=== PATIENT | female | born 1970 | race Caucasian/White ===

== ENCOUNTER → 2018-09-09 | Outpatient (CLI) | payer MEDICAID ==
[~2018-09-09] MED LIST: ADVAIR 500/28 DISKU1 IH; CARDIZEM CD120 MG PO; CLONAZEPAM PO; CLONAZEPAM1 M1 PO; CLOPIDOGREL PO; DARVOCET A500 51 TAB PO; DEPAKOTE500 M1 PO; DILANTIN; DILANTIN 100MG100 MG PO; DILANTIN PO; DILANTIN100 MG PO; FOSAMAX PO; GABAPENTIN600 MG PO; KLONOPIN 1MG1 MG PO; KLONOPIN1 MG PO; KLONOPIN2 MG PO; LAMICTAL; LAMICTAL PO; LEVOCETIRIZINE; LISINOPRIL20 MG PO; LORTAB 5/500 501 TAB PO; LYRICA150 MG PO; LYRICA75 MG PO; MECLIZINE25 MG PO; METHOCARBAMOL500 MG PO; METOPROLOL50 MG PO; MIRALAX17 GM/DOSE PO; NAPROSYN375 MG PO; NEURONTIN600 MG/TAB PO; NORCO 325 MG-7.1 TAB PO; NORTRIPTYLINE25 MG PO; PAMELOR 25MG25 MG PO; PAMELOR PO; PERCOCET 5/321 UDTAB PO; PRILOSEC 20MG20 MG PO; PRILOSEC10 MG PO; PROVENTIL0.09 MG/A1 IH; ROXICODONE 55 MG/TAB PO; ROZEREM 8MG TABL8 MG PO; ROZEREM8 MG PO; RT ADVAIR 528 DISKUS IH; SEROQUEL XR400 M1 PO; SEROQUEL XR400 MG PO; SEROQUEL100 MG PO; SEROQUEL400 MG PO; SINGULAIR PO; SINGULAIR10 MG PO; TOPAMAX 25MG25 MG PO; TOPROL XL 50MG50 MG PO; XANAX 1MG1 MG PO; XANAX0.25 MG PO; XYZAL PO; XYZAL5 MG PO; ZOCOR 40MG40 MG PO; calcium; oxygen
== END ==
LOC: COL.RAD 14:00
DX: M51.17 Intervertebral disc disorders with radiculopathy, lumbosacral region (principal); M43.8X4 Other specified deforming dorsopathies, thoracic region

== ENCOUNTER 2018-10-06 13:55 | Emergency (ER) | payer MEDICAID ==
[~2018-10-06] VITALS: Ht 165.1 cm; Wt 86.4 kg
[2018-10-06 13:57] VITALS: TEMP 97.5
[2018-10-06] MEDS ORDERED: FLEXERIL 1010 MG/TAB PO (14:13)
[2018-10-06] MEDS ORDERED: KLONOPIN 1MG1 MG PO (14:13)
[2018-10-06] MEDS ORDERED: ROZEREM 8MG TABL8 MG PO (14:13)
[2018-10-06] MEDS ORDERED: SEROQUEL50 MG PO (14:14)
[2018-10-06] MEDS ORDERED: SYNTHROID 0.0.025 MG PO (14:14)
[2018-10-06] MEDS ORDERED: TOPROL XL 50MG50 MG PO ×2 (14:14→14:15)
[2018-10-06] MEDS ORDERED: VISTARIL50 MG PO (14:14)
[2018-10-06] MEDS ORDERED: SEROQUEL400 MG PO (14:14)
[2018-10-06] MEDS ORDERED: NEURONTIN600 MG/TAB PO (14:15)
[2018-10-06] MEDS ORDERED: REMERON 15M15 MG/TA1 PO (14:15)
[2018-10-06] MEDS ORDERED: PERCOCET 325 MG1 TA2 PO (15:29)
[2018-10-06] MEDS ORDERED: CRUTCHES MC (15:33)
--- NOTE | 2018-10-06 16:22 | NUR ---
SW was called by ED nurse. Patient is ready to discharge but she does not have a ride home and she does not have any money to pay for a taxi. ED nurse also tried to contact patient's insurance for transportation but patient does not have those benefits. PAMELA provided a taxi voucher.
[2018-10-06 16:35] VITALS: BP 131/84; PULSE 59
== END 2018-10-06 16:37 | disposition home or self-care (01) ==
LOC: COL.ER 13:55
DX: S82.831A Other fracture of upper and lower end of right fibula, initial encounter for closed fracture (principal); I10 Essential (primary) hypertension; F31.9 Bipolar disorder, unspecified; F17.210 Nicotine dependence, cigarettes, uncomplicated; W19.XXXA Unspecified fall, initial encounter; Y92.009 Unspecified place in unspecified non-institutional (private) residence as the place of occurrence of the external cause
CPT/HCPCS: J3010; Q4045

== ENCOUNTER 2018-11-02 18:33 | Emergency (ER) | payer MEDICAID ==
[~2018-11-02] VITALS: Ht 165.1 cm; Wt 86.4 kg
[~2018-11-02 18:33] MED LIST changes: +CRUTCHES MC; +FLEXERIL 1010 MG/TAB PO; +PERCOCET 325 MG1 TA2 PO; +REMERON 15M15 MG/TA1 PO; +SEROQUEL50 MG PO; +SYNTHROID 0.0.025 MG PO; +VISTARIL50 MG PO
[2018-11-02 18:42] VITALS: BP 143/72; PULSE 71; TEMP 97
== END 2018-11-02 19:15 | disposition left against medical advice (07) ==
LOC: COL.ER 18:33
DX: S51.002A Unspecified open wound of left elbow, initial encounter (principal); X58.XXXA Exposure to other specified factors, initial encounter

== ENCOUNTER 2019-04-26 17:15 | Emergency (ER) | payer MEDICAID ==
[~2019-04-26] VITALS: Ht 165.1 cm; Wt 81.8 kg
[2019-04-26 17:49] VITALS: BP 130/67; PULSE 73; TEMP 98.1
== END 2019-04-26 18:44 | disposition left against medical advice (07) ==
LOC: COL.ER 17:15
DX: M79.662 Pain in left lower leg (principal)

== ENCOUNTER 2019-06-02 16:14 | Emergency (ER) | payer MEDICAID ==
[~2019-06-02] VITALS: Ht 170.2 cm; Wt 81.8 kg
[2019-06-02 16:19] VITALS: BP 142/87; TEMP 98.2
[2019-06-02 17:42] VITALS: PULSE 73
== END 2019-06-02 17:42 | disposition home or self-care (01) ==
LOC: COL.ER 16:14
DX: S63.502A Unspecified sprain of left wrist, initial encounter (principal); J44.9 Chronic obstructive pulmonary disease, unspecified; J84.10 Pulmonary fibrosis, unspecified; F17.290 Nicotine dependence, other tobacco product, uncomplicated; W18.30XA Fall on same level, unspecified, initial encounter

== ENCOUNTER 2019-06-09 23:10 | Emergency (ER) | payer MEDICAID ==
[~2019-06-09] VITALS: Ht 165.1 cm; Wt 81.8 kg
[2019-06-09 23:11] VITALS: BP 127/93; TEMP 98.1
[2019-06-10 00:51] VITALS: PULSE 83
== END 2019-06-10 00:51 | disposition home or self-care (01) ==
LOC: COL.ER 23:10
DX: S69.92XA Unspecified injury of left wrist, hand and finger(s), initial encounter (principal); J44.9 Chronic obstructive pulmonary disease, unspecified; F31.9 Bipolar disorder, unspecified; F17.210 Nicotine dependence, cigarettes, uncomplicated; Z90.710 Acquired absence of both cervix and uterus; Z90.89 Acquired absence of other organs; W19.XXXA Unspecified fall, initial encounter
CPT/HCPCS: J1170

== ENCOUNTER 2019-06-18 19:30 | Emergency (ER) | payer MEDICAID ==
[~2019-06-18] VITALS: Ht 167.6 cm; Wt 81.8 kg
[2019-06-18 19:32] VITALS: TEMP 98.4
[2019-06-18 20:16] LABS: EOS # 0.1 (0.0-0.7); EOS % 1.5 % (0-4.0); GRAN # 4.2 (1.4-6.5); GRAN % 61.9 % (42.2-75.2); HEMATOCRIT 40.5 % (37.0-47.0); HEMOGLOBIN 13.4 g/dl (12.5-16.0); LYMPH % 29.2 % (20.0-51.0); MEAN CELL VOLUME 90 fl (80.0-100.0); MEAN CORPUSCULAR HEMOGLOBIN 30 pg (27.0-31.0); MEAN CORPUSCULAR HGB CONC 33 g/dl (33.0-37.0); MEAN PLATELET VOLUME 9.7 fl (7.4-10.4); MONO # 0.5 (0.1-0.6); MONO % 7.1 % (1.7-9.3); PLATELET COUNT 241 K/mm3 (130-400); RED BLOOD COUNT 4.52 M/mm3 (4.10-5.30); REDCELL DISTRIBUTION WIDTH-CV 12.7 % (11.5-14.5)
[2019-06-18 20:20] LABS: CALCIUM 9.3 mg/dL (8.4-10.2); CREATININE, serum 0.78 (0.52-1.25); POTASSIUM 3.9 mmol/L (3.4-5.0)
[2019-06-18 21:21] LABS: COLLECTION METHOD CLEAN CATCH
[2019-06-18 21:25] VITALS: BP 125/93
[2019-06-18 21:40] LABS: PH 7 (5-8); SQUAMOUS EPITHELIAL 0-2 /hpf; URINE APPEARANCE Clear; URINE BACTERIA Rare /hpf; URINE BILIRUBIN Negative (NEGATIVE); URINE BLOOD Negative (NEGATIVE); URINE COLOR Straw; URINE GLUCOSE Negative (NEGATIVE); URINE KETONE Negative (NEGATIVE); URINE LEUKOCYTE ESTERASE Negative (NEGATIVE); URINE NITRATE Negative (NEGATIVE); URINE PROTEIN(semi-quant) Negative (NEGATIVE); URINE RBC 0-2 /hpf; URINE UROBILINOGEN Negative (NEGATIVE)
[2019-06-18 21:51] VITALS: PULSE 94
== END 2019-06-18 21:51 | disposition home or self-care (01) ==
LOC: COL.ER 19:30
PROVIDERS: Physician Assistant
DX: R52 Pain, unspecified (principal)
CPT/HCPCS: J7030

== ENCOUNTER 2019-12-05 21:15 | Emergency (ER) | payer MEDICAID ==
[~2019-12-05] VITALS: Ht 165.1 cm; Wt 84.1 kg
[2019-12-05 21:16] VITALS: TEMP 98.7
[2019-12-05] MEDS ORDERED: NORCO 325 MG-51 TAB PO (22:19)
[2019-12-05 22:55] VITALS: BP 123/87; PULSE 76
== END 2019-12-05 22:25 | disposition home or self-care (01) ==
LOC: COL.ER 21:15
DX: S43.401A Unspecified sprain of right shoulder joint, initial encounter (principal); S46.911A Strain of unspecified muscle, fascia and tendon at shoulder and upper arm level, right arm, initial encounter; I10 Essential (primary) hypertension; G40.909 Epilepsy, unspecified, not intractable, without status epilepticus; F31.9 Bipolar disorder, unspecified; F17.290 Nicotine dependence, other tobacco product, uncomplicated; R40.2412 Glasgow coma scale score 13-15, at arrival to emergency department; W01.0XXA Fall on same level from slipping, tripping and stumbling without subsequent striking against object, initial encounter; Y92.002 Bathroom of unspecified non-institutional (private) residence as the place of occurrence of the external cause
CPT/HCPCS: J3010

== ENCOUNTER 2020-04-24 18:29 | Emergency (ER) | payer MEDICAID ==
[~2020-04-24] VITALS: Ht 165.1 cm; Wt 86.4 kg
[~2020-04-24 18:29] MED LIST changes: +NORCO 325 MG-51 TAB PO
[2020-04-24 18:30] VITALS: TEMP 97.9
[2020-04-24 19:31] VITALS: BP 130/71
[2020-04-24] MEDS ORDERED: FLEXERIL 1010 MG/TAB PO (19:41)
[2020-04-24] MEDS ORDERED: LIDODERM 5% PATC1 EA TP (19:41)
[2020-04-24] MEDS ORDERED: MEDROL 4MG DOSPA4 MG PO (19:41)
[2020-04-24 20:15] VITALS: PULSE 88
== END 2020-04-24 20:15 | disposition home or self-care (01) ==
LOC: COL.ER 18:29
DX: M54.16 Radiculopathy, lumbar region (principal); G89.29 Other chronic pain; I10 Essential (primary) hypertension; F31.9 Bipolar disorder, unspecified; G40.909 Epilepsy, unspecified, not intractable, without status epilepticus; F17.200 Nicotine dependence, unspecified, uncomplicated; Z90.710 Acquired absence of both cervix and uterus; Z88.0 Allergy status to penicillin; Z88.1 Allergy status to other antibiotic agents; Z88.2 Allergy status to sulfonamides; Z88.5 Allergy status to narcotic agent; Z88.6 Allergy status to analgesic agent; Z88.8 Allergy status to other drugs, medicaments and biological substances
CPT/HCPCS: J3010

== ENCOUNTER 2020-07-15 16:14 | Emergency (ER) | payer MEDICAID ==
[~2020-07-15] VITALS: Ht 165.1 cm; Wt 84.1 kg
[~2020-07-15 16:14] MED LIST changes: +LIDODERM 5% PATC1 EA TP; +MEDROL 4MG DOSPA4 MG PO
[2020-07-15 16:17] VITALS: TEMP 98.5
[2020-07-15 16:58] LABS: BASO % 0.1 % (0.0-2.0); EOS # 0.2 (0.0-0.7); EOS % 2.4 % (0-4.0); GRAN # 4.8 (1.4-6.5); GRAN % 66.6 % (42.2-75.2); HEMATOCRIT 45.3 % (37.0-47.0); HEMOGLOBIN 14.9 g/dl (12.5-16.0); LYMPH # 1.7 (1.2-3.4); LYMPH % 23.4 % (20.0-51.0); MEAN CELL VOLUME 90 fl (80.0-100.0); MEAN CORPUSCULAR HEMOGLOBIN 30 pg (27.0-31.0); MEAN CORPUSCULAR HGB CONC 33 g/dl (33.0-37.0); MEAN PLATELET VOLUME 9.1 fl (7.4-10.4); MONO # 0.5 (0.1-0.6); MONO % 7.1 % (1.7-9.3); PLATELET COUNT 300 K/mm3 (130-400); RED BLOOD COUNT 5.02 M/mm3 (4.10-5.30); REDCELL DISTRIBUTION WIDTH-CV 13.5 % (11.5-14.5)
[2020-07-15 17:07] LABS: ALANINE AMINOTRANSFERASE 24 U/L (4-34); ALBUMIN 4.3 gm/dL (3.5-5.0); ALKALINE PHOSPHATASE 144 U/L (50-136); ANION GAP 7 mmol/L (7-16); AST,SGOT 28 U/L (15-37); BILIRUBIN,TOTAL 0.6 mg/dL (0.0-1.0); BLOOD UREA NITROGEN 12 mg/dL (7-17); CALCIUM 9.4 mg/dL (8.4-10.2); CARBON DIOXIDE 27 mmol/L (22-30); CHLORIDE 105 mmol/L (98-107); CREATININE, serum 0.91 (0.52-1.25); GLUCOSE 119 mg/dL (74-106); POTASSIUM 4.6 mmol/L (3.4-5.0); SODIUM 139 mmol/L (137-145); TOTAL PROTEIN 7.6 gm/dL (6.4-8.2)
[2020-07-15 17:28] LABS: TROPONIN-I < 0.012 ng/mL (0.000-0.035)
[2020-07-15] MEDS ORDERED: IPRATROPIUM BROM3 M1 IH (18:18)
[2020-07-15] MEDS ORDERED: NEB MC (18:18)
[2020-07-15 18:45] VITALS: BP 110/61; PULSE 86
== END 2020-07-15 19:00 | disposition home or self-care (01) ==
LOC: COL.ER 16:14
PROVIDERS: Physician Assistant
DX: R06.02 Shortness of breath (principal); I10 Essential (primary) hypertension; F31.9 Bipolar disorder, unspecified; G40.909 Epilepsy, unspecified, not intractable, without status epilepticus; F17.210 Nicotine dependence, cigarettes, uncomplicated; Z88.0 Allergy status to penicillin; Z20.822 Contact with and (suspected) exposure to COVID-19; Z88.2 Allergy status to sulfonamides; Z88.1 Allergy status to other antibiotic agents; Z88.8 Allergy status to other drugs, medicaments and biological substances

== ENCOUNTER 2020-10-10 19:03 | Emergency (ER) | payer MEDICAID ==
[~2020-10-10] VITALS: Ht 167.6 cm; Wt 81.8 kg
[~2020-10-10 19:03] MED LIST changes: +IPRATROPIUM BROM3 M1 IH; +NEB MC
[2020-10-10 22:50] VITALS: BP 128/87; PULSE 89; TEMP 98.7
== END 2020-10-10 20:36 | disposition home or self-care (01) ==
LOC: COL.ER 19:03
DX: T23.201A Burn of second degree of right hand, unspecified site, initial encounter (principal); R56.9 Unspecified convulsions; F17.290 Nicotine dependence, other tobacco product, uncomplicated; Z79.899 Other long term (current) drug therapy; X12.XXXA Contact with other hot fluids, initial encounter

== ENCOUNTER 2021-01-12 17:53 | Emergency (ER) | payer MEDICAID ==
[~2021-01-12] VITALS: Ht 165.1 cm; Wt 90.9 kg
[2021-01-12 17:55] VITALS: TEMP 98.1
[2021-01-12 21:08] VITALS: BP 144/70; PULSE 76
== END 2021-01-12 21:08 | disposition home or self-care (01) ==
LOC: COL.ER 17:53
DX: S93.401A Sprain of unspecified ligament of right ankle, initial encounter (principal); I10 Essential (primary) hypertension; F31.9 Bipolar disorder, unspecified; G89.29 Other chronic pain; G40.909 Epilepsy, unspecified, not intractable, without status epilepticus; F17.210 Nicotine dependence, cigarettes, uncomplicated; Z79.899 Other long term (current) drug therapy; W01.0XXA Fall on same level from slipping, tripping and stumbling without subsequent striking against object, initial encounter; Y93.K1 Activity, walking an animal; Y92.009 Unspecified place in unspecified non-institutional (private) residence as the place of occurrence of the external cause

== ENCOUNTER 2021-02-26 19:01 | Emergency (ER) | payer MEDICAID ==
[~2021-02-26] VITALS: Ht 152.4 cm; Wt 86.4 kg
[2021-02-26 19:55] LABS: COLLECTION METHOD CLEAN CATCH
[2021-02-26 20:00] LABS: BASO % 0.4 % (0.0-2.0); EOS # 0.1 K/mm3 (0.0-0.7); EOS % 1.8 % (0-4.0); GRAN # 3.1 K/mm3 (1.4-6.5); GRAN % 54.4 % (42.2-75.2); HEMATOCRIT 43.9 % (37.0-47.0); HEMOGLOBIN 14.6 g/dl (12.5-16.0); LYMPH % 36.3 % (20.0-51.0); MEAN CELL VOLUME 85 fl (80.0-100.0); MEAN CORPUSCULAR HEMOGLOBIN 28 pg (27.0-31.0); MEAN CORPUSCULAR HGB CONC 33 g/dl (33.0-37.0); MEAN PLATELET VOLUME 9.5 fl (7.4-10.4); MONO # 0.4 K/mm3 (0.1-0.6); MONO % 6.9 % (1.7-9.3); PLATELET COUNT 278 K/mm3 (130-400); RED BLOOD COUNT 5.19 M/mm3 (4.10-5.30); REDCELL DISTRIBUTION WIDTH-CV 12.5 % (11.5-14.5)
[2021-02-26 20:03] LABS: MUCOUS Present /lpf; PH 6 (5-8); SQUAMOUS EPITHELIAL 0-2 /hpf; URINE APPEARANCE Hazy; URINE BACTERIA None Seen /hpf; URINE BILIRUBIN Negative (NEGATIVE); URINE BLOOD Negative (NEGATIVE); URINE COLOR Yellow; URINE GLUCOSE Negative (NEGATIVE); URINE KETONE Negative (NEGATIVE); URINE LEUKOCYTE ESTERASE Negative (NEGATIVE); URINE NITRATE Negative (NEGATIVE); URINE PROTEIN(semi-quant) Negative (NEGATIVE); URINE RBC 0-2 /hpf; URINE UROBILINOGEN Negative (NEGATIVE)
[2021-02-26 20:13] LABS: TRICYCLIC ANTIDEPRESS URINE POSITIVE
[2021-02-26 20:20] LABS: ALANINE AMINOTRANSFERASE 20 U/L (0-55); ALBUMIN 3.9 gm/dL (3.5-5.0); ALKALINE PHOSPHATASE 158 U/L (40-150); ANION GAP 9 mmol/L (7-16); AST,SGOT 14 U/L (5-34); BILIRUBIN,TOTAL 0.3 mg/dL (0.2-1.2); BLOOD UREA NITROGEN 11 mg/dL (10-20); CALCIUM 10.3 mg/dL (8.4-10.2); CARBON DIOXIDE 26 mmol/L (22-29); CHLORIDE 105 mmol/L (98-107); GLUCOSE 108 mg/dL (70-99); POTASSIUM 4.2 mmol/L (3.5-4.5); SODIUM 140 mmol/L (136-145); TOTAL PROTEIN 7.5 gm/dL (6.2-8.1)
[2021-02-26 20:25] LABS: ACETAMINOPHEN < 1.0 ug/mL (10-30); ALCOHOL(ethanol),MEDICAL < 10 mg/dL (0-10); SALICYLATE < 5.0 mg/dL (15.0-30.0)
[2021-02-26 20:40] LABS: TSH w REFLEX 3.275 uIU/mL (0.350-4.940)
[2021-02-27 01:26] VITALS: BP 125/95; PULSE 88; TEMP 98.6
== END 2021-02-27 01:26 | disposition home or self-care (01) ==
LOC: COL.ER 19:01
PROVIDERS: Emergency Medicine
DX: T43.591A Poisoning by other antipsychotics and neuroleptics, accidental (unintentional), initial encounter (principal); I10 Essential (primary) hypertension; F31.9 Bipolar disorder, unspecified; G40.909 Epilepsy, unspecified, not intractable, without status epilepticus; Z79.899 Other long term (current) drug therapy; X58.XXXA Exposure to other specified factors, initial encounter

== ENCOUNTER 2021-06-24 15:14 | Emergency (ER) | payer MEDICAID ==
[~2021-06-24] VITALS: Ht 165.1 cm; Wt 90.0 kg
[2021-06-24 15:21] VITALS: BP 121/81; TEMP 98
[2021-06-24] MEDS ORDERED: LEVAQUIN 5500 MG/TA1 PO (16:01)
[2021-06-24] MEDS ORDERED: CLEOCIN HCL300 MG PO (16:01)
[2021-06-24 16:44] VITALS: PULSE 93
== END 2021-06-24 16:44 | disposition home or self-care (01) ==
LOC: COL.ER 15:14
DX: S61.451A Open bite of right hand, initial encounter (principal); I10 Essential (primary) hypertension; F31.9 Bipolar disorder, unspecified; G43.909 Migraine, unspecified, not intractable, without status migrainosus; F17.210 Nicotine dependence, cigarettes, uncomplicated; Z79.899 Other long term (current) drug therapy; W54.0XXA Bitten by dog, initial encounter
CPT/HCPCS: J0696

== ENCOUNTER 2021-11-11 17:06 | Emergency (ER) | payer MEDICAID ==
[~2021-11-11] VITALS: Ht 165.1 cm; Wt 84.1 kg
[~2021-11-11 17:06] MED LIST changes: +CLEOCIN HCL300 MG PO; +LEVAQUIN 5500 MG/TA1 PO
[2021-11-11 17:09] VITALS: TEMP 98.2
[2021-11-11 19:25] VITALS: BP 137/90; PULSE 87
== END 2021-11-11 19:25 | disposition home or self-care (01) ==
LOC: COL.ER 17:06
DX: M25.562 Pain in left knee (principal); M54.6 Pain in thoracic spine; M54.50 Low back pain, unspecified; Z87.81 Personal history of (healed) traumatic fracture; Z28.310 Unvaccinated for COVID-19; Z91.040 Latex allergy status; W05.0XXA Fall from non-moving wheelchair, initial encounter

== ENCOUNTER → 2022-01-15 | Outpatient (CLI) | payer MEDICAID | LOC: COL.VAS 07:44 | DX: M79.662 Pain in left lower leg (principal) ==